=== PATIENT | female | born 1970 | race African-American/Black ===

== ENCOUNTER 2016-06-23 12:17 | Emergency (ER) | payer OTHER ==
[~2016-06-23] VITALS: Ht 66 cm; Wt 57.0 kg
[2016-06-23 12:18] VITALS: BP 107/81; PULSE 79; TEMP 97.8
[2016-06-23] MEDS ORDERED: OSCAL 500 TAB500 MG (12:23)
[2016-06-23] MEDS ORDERED: B COMPLEX & B121 TAB PO (12:23)
[2016-06-23] MEDS ORDERED: IRON325 MG PO (12:23)
[2016-06-23] MEDS ORDERED: COMBIRESP IH (12:24)
== END 2016-06-23 12:55 | disposition home or self-care (01) ==
LOC: COL.ER 12:17
DX: M25.562 Pain in left knee (principal)